=== PATIENT | female | born 1995 | race Asian ===

== ENCOUNTER 2017-03-02 02:12 | Emergency (ER) | payer SELFPAY ==
[~2017-03-02] VITALS: Ht 157.5 cm; Wt 48.0 kg
[2017-03-02 03:19] VITALS: BP 112/74
== END 2017-03-02 03:21 | disposition home or self-care (01) ==
LOC: ED 03:02
DX: F10.120 Alcohol abuse with intoxication, uncomplicated (principal)
CPT/HCPCS: 99283